=== PATIENT | female | born 1995 | race Caucasian/White ===

== ENCOUNTER 2025-02-11 20:20 | Emergency (ER) | payer OTHER ==
[~2025-02-11] VITALS: Ht 165.1 cm; Wt 74.8 kg
[2025-02-11 20:36] VITALS: O2SAT 99
[2025-02-11] MEDS ORDERED: TOPUD PO (22:41)
[2025-02-11] MEDS: IBUPROFEN 600MG TABLET PO ONE (22:47)
[2025-02-11] MEDS: ACETAMINOPHEN 325MG TABLET PO ONE (22:48)
[2025-02-11 23:07] VITALS: BP 121/55; PULSE 84; RESP 18; TEMP 36.8; O2SAT 99
== END 2025-02-11 23:11 | disposition home or self-care (01) ==
LOC: ER 20:20
DX: M25.521 Pain in right elbow (principal); M79.631 Pain in right forearm; F19.90 Other psychoactive substance use, unspecified, uncomplicated
CPT/HCPCS: 73080; 73090; 99284